=== PATIENT | male | born 1955 | race Caucasian/White ===

== ENCOUNTER 2017-11-03 06:55 | Day surgery (SDC) | payer OTHER ==
[~2017-11-03] VITALS: Ht 190.5 cm; Wt 125.4 kg
[~2017-11-03 06:55] MED LIST: ALLO300 PO; Azor 5-40 MG T1 EACH; ENOX40I SC; IBUP800 PO; LISI20 PO; LISINOPRIL 40MG PO; LOVA40 PO; NAPR220 PO; OXYACE5T PO; PYRI100 PO
== END 2017-11-03 08:56 | disposition home or self-care (01) ==
LOC: ORSCSDS 06:55
PROVIDERS: Surgery
PROC: 0DJD8ZZ Inspection of Lower Intestinal Tract, Via Natural or Artificial Opening Endoscopic (ICD-10-PCS; principal; 2017-11-03 08:00)
DX: Z86.010 Personal history of colon polyps (principal); Z85.038 Personal history of other malignant neoplasm of large intestine; F17.220 Nicotine dependence, chewing tobacco, uncomplicated; E78.5 Hyperlipidemia, unspecified; I10 Essential (primary) hypertension; Z79.899 Other long term (current) drug therapy
CPT/HCPCS: J0330; J1980; J2405; J7120

== ENCOUNTER → 2018-11-08 | Outpatient (CLI) | payer OTHER | END | disposition home or self-care (01) | LOC: LAB SHORT 10:13 → PLD 10:13 | DX: L57.0 Actinic keratosis (principal) | CPT/HCPCS: 88305 ==

== ENCOUNTER → 2018-11-23 | Outpatient (CLI) | payer OTHER | END | disposition home or self-care (01) | LOC: LAB 10:04 → LAB SHORT 10:04 | DX: L03.115 Cellulitis of right lower limb (principal) | CPT/HCPCS: 87070; 87077; 87186; 87205 ==

== ENCOUNTER → 2019-05-26 | Outpatient (CLI) | payer MEDICARE, OTHER | END | disposition home or self-care (01) | LOC: LAB SHORT 14:04 → PLD 14:04 | DX: I87.2 Venous insufficiency (chronic) (peripheral) (principal) | CPT/HCPCS: 88305 ==

== ENCOUNTER → 2020-01-24 | Outpatient (CLI) | payer MEDICARE, OTHER | END | disposition home or self-care (01) | LOC: LAB 12:42 → LAB SHORT 12:42 | DX: L08.0 Pyoderma (principal) | CPT/HCPCS: 87070; 87205 ==

== ENCOUNTER → 2020-01-24 | Outpatient (CLI) | payer MEDICARE, OTHER | END | disposition home or self-care (01) | LOC: PLD 13:06 → LAB SHORT 13:06 | DX: L57.0 Actinic keratosis (principal) | CPT/HCPCS: 88305 ==

== ENCOUNTER → 2020-03-20 | Outpatient (CLI) | payer MEDICARE, OTHER | END | disposition home or self-care (01) | LOC: LAB 12:15 → LAB SHORT 12:15 | DX: L03.115 Cellulitis of right lower limb (principal) | CPT/HCPCS: 87070; 87147; 87205 ==

== ENCOUNTER → 2020-04-18 | Outpatient (CLI) | payer MEDICARE, OTHER | END | disposition home or self-care (01) | LOC: LAB 08:30 → LAB SHORT 08:30 | DX: L03.115 Cellulitis of right lower limb (principal) | CPT/HCPCS: 87070; 87205 ==

== ENCOUNTER 2021-01-23 09:57 | Day surgery (SDC) | payer MEDICARE, OTHER ==
[~2021-01-23] VITALS: Ht 190.5 cm; Wt 131.0 kg
[~2021-01-23 09:57] MED LIST changes: +ALLOPURINOL100 MG PO; +Benicar40 MG PO; +ERGO50000 PO; +Norco 5-325 Ta1 EACH PO; +VITAMIN B COMP1 EAC1 PO
== END 2021-01-23 12:26 | disposition home or self-care (01) ==
LOC: ORSCSDS 09:57
PROVIDERS: Surgery
PROC: 0DBH8ZX Excision of Cecum, Via Natural or Artificial Opening Endoscopic, Diagnostic (ICD-10-PCS; principal; 2021-01-23 11:15)
DX: Z12.11 Encounter for screening for malignant neoplasm of colon (principal); Z85.038 Personal history of other malignant neoplasm of large intestine; D12.0 Benign neoplasm of cecum; E78.5 Hyperlipidemia, unspecified; I10 Essential (primary) hypertension; G47.30 Sleep apnea, unspecified; E66.01 Morbid (severe) obesity due to excess calories; Z68.37 Body mass index [BMI] 37.0-37.9, adult; Z79.899 Other long term (current) drug therapy
CPT/HCPCS: 88305; J2704; J7120

== ENCOUNTER 2022-03-24 16:23 | Emergency (ER) | payer MEDICARE, OTHER ==
[~2022-03-24] VITALS: Ht 190.5 cm; Wt 124.7 kg
[2022-03-24] MEDS ORDERED: CRUTCH3 XX (18:46)
== END 2022-03-24 18:54 | disposition home or self-care (01) ==
LOC: ER 16:23
DX: S83.92XA Sprain of unspecified site of left knee, initial encounter (principal); E78.5 Hyperlipidemia, unspecified; I10 Essential (primary) hypertension; X58.XXXA Exposure to other specified factors, initial encounter; Y93.01 Activity, walking, marching and hiking; Y92.9 Unspecified place or not applicable; Z79.899 Other long term (current) drug therapy; Z96.651 Presence of right artificial knee joint
CPT/HCPCS: 73562-LT; J1885

== ENCOUNTER 2024-09-26 00:18 | Day surgery (SDC) | payer MEDICARE, OTHER ==
[~2024-09-26 00:18] MED LIST changes: +CRUTCH3 XX; +VITAMIN B6 PO
== END 2024-09-26 23:00 | disposition home or self-care (01) ==
LOC: WOUND 00:18
DX: I83.018 Varicose veins of right lower extremity with ulcer other part of lower leg (principal); L97.312 Non-pressure chronic ulcer of right ankle with fat layer exposed; I87.2 Venous insufficiency (chronic) (peripheral); I73.9 Peripheral vascular disease, unspecified
CPT/HCPCS: A6196; A6213; G0463

== ENCOUNTER 2024-10-03 04:51 | Day surgery (SDC) | payer MEDICARE, OTHER ==
[2024-10-03] MEDS ORDERED: Lidocaine HCl 4% Cream 5 GM ONE (08:50)
== END 2024-10-03 23:49 | disposition home or self-care (01) ==
LOC: WOUND 04:51
DX: L97.312 Non-pressure chronic ulcer of right ankle with fat layer exposed (principal); I87.2 Venous insufficiency (chronic) (peripheral); I73.9 Peripheral vascular disease, unspecified; I10 Essential (primary) hypertension
CPT/HCPCS: A6196; A6213; A9270; G0463

== ENCOUNTER 2024-10-10 03:01 | Day surgery (SDC) | payer MEDICARE, OTHER | END 2024-10-10 23:00 | disposition home or self-care (01) | LOC: WOUND 03:01 | DX: I83.018 Varicose veins of right lower extremity with ulcer other part of lower leg (principal); L97.312 Non-pressure chronic ulcer of right ankle with fat layer exposed; L97.319 Non-pressure chronic ulcer of right ankle with unspecified severity; I87.2 Venous insufficiency (chronic) (peripheral); I73.9 Peripheral vascular disease, unspecified | CPT/HCPCS: A6196; A6213; G0463 ==

== ENCOUNTER 2024-10-24 03:04 | Day surgery (SDC) | payer MEDICARE, OTHER | END 2024-10-24 23:00 | disposition home or self-care (01) | LOC: WOUND 03:04 | DX: I83.018 Varicose veins of right lower extremity with ulcer other part of lower leg (principal); L97.312 Non-pressure chronic ulcer of right ankle with fat layer exposed; I87.2 Venous insufficiency (chronic) (peripheral); I73.9 Peripheral vascular disease, unspecified; I10 Essential (primary) hypertension | CPT/HCPCS: A6196; A6213; G0463 ==

== ENCOUNTER 2024-10-31 03:10 | Day surgery (SDC) | payer MEDICARE, OTHER | END 2024-10-31 23:00 | disposition home or self-care (01) | LOC: WOUND 03:10 | DX: L97.312 Non-pressure chronic ulcer of right ankle with fat layer exposed (principal); I87.2 Venous insufficiency (chronic) (peripheral); I73.9 Peripheral vascular disease, unspecified; I10 Essential (primary) hypertension | CPT/HCPCS: 87070; 87075; 87077; 87147; 87186; 87205; A6196; A6213; G0463 ==

== ENCOUNTER 2024-11-07 04:22 | Day surgery (SDC) | payer MEDICARE, OTHER ==
[2024-11-07] MEDS ORDERED: Lidocaine HCl 4% Cream 5 GM ONE (08:42)
== END 2024-11-07 23:00 | disposition home or self-care (01) ==
LOC: WOUND 04:22
DX: L97.312 Non-pressure chronic ulcer of right ankle with fat layer exposed (principal); I10 Essential (primary) hypertension; I83.018 Varicose veins of right lower extremity with ulcer other part of lower leg; I73.9 Peripheral vascular disease, unspecified; I87.2 Venous insufficiency (chronic) (peripheral)
CPT/HCPCS: A6196; A9270

== ENCOUNTER 2024-11-14 04:06 | Day surgery (SDC) | payer MEDICARE, OTHER ==
[2024-11-14] MEDS ORDERED: Lidocaine HCl 4% Cream 5 GM ONE (10:38)
== END 2024-11-14 23:00 | disposition home or self-care (01) ==
LOC: WOUND 04:06
DX: L97.312 Non-pressure chronic ulcer of right ankle with fat layer exposed (principal); I83.018 Varicose veins of right lower extremity with ulcer other part of lower leg; I87.2 Venous insufficiency (chronic) (peripheral); I73.9 Peripheral vascular disease, unspecified
CPT/HCPCS: A9270

== ENCOUNTER 2024-11-21 06:18 | Day surgery (SDC) | payer MEDICARE, OTHER ==
[2024-11-21] MEDS ORDERED: Lidocaine HCl 4% Cream 5 GM ONE (10:26)
== END 2024-11-21 23:00 | disposition home or self-care (01) ==
LOC: WOUND 06:18
DX: L97.312 Non-pressure chronic ulcer of right ankle with fat layer exposed (principal); I87.2 Venous insufficiency (chronic) (peripheral); I73.9 Peripheral vascular disease, unspecified; I10 Essential (primary) hypertension
CPT/HCPCS: A9270

== ENCOUNTER 2024-11-28 06:21 | Day surgery (SDC) | payer MEDICARE, OTHER ==
[2024-11-28] MEDS ORDERED: Lidocaine HCl 4% Cream 5 GM ONE (10:06)
== END 2024-11-28 23:00 | disposition home or self-care (01) ==
LOC: WOUND 06:21
DX: L97.312 Non-pressure chronic ulcer of right ankle with fat layer exposed (principal); I83.018 Varicose veins of right lower extremity with ulcer other part of lower leg; I87.2 Venous insufficiency (chronic) (peripheral); I73.9 Peripheral vascular disease, unspecified
CPT/HCPCS: A6196; A9270

== ENCOUNTER 2024-12-05 01:19 | Day surgery (SDC) | payer MEDICARE, OTHER ==
[2024-12-05] MEDS ORDERED: Lidocaine HCl 4% Cream 5 GM ONE (10:36)
== END 2024-12-05 23:00 | disposition home or self-care (01) ==
LOC: WOUND 01:19
DX: L97.312 Non-pressure chronic ulcer of right ankle with fat layer exposed (principal); I83.018 Varicose veins of right lower extremity with ulcer other part of lower leg; I87.2 Venous insufficiency (chronic) (peripheral); I73.9 Peripheral vascular disease, unspecified
CPT/HCPCS: A6196; A9270

== ENCOUNTER 2024-12-19 00:12 | Day surgery (SDC) | payer MEDICARE, OTHER ==
[2024-12-19] MEDS ORDERED: Lidocaine HCl 4% Cream 5 GM ONE (07:53)
[2024-12-19] MEDS ORDERED: Triamcinolone Acet 0.1% Cream 15 gm ONE (08:16)
== END 2024-12-19 23:00 | disposition home or self-care (01) ==
LOC: WOUND 00:12
DX: L97.312 Non-pressure chronic ulcer of right ankle with fat layer exposed (principal); I10 Essential (primary) hypertension; I87.2 Venous insufficiency (chronic) (peripheral); I73.9 Peripheral vascular disease, unspecified; I83.018 Varicose veins of right lower extremity with ulcer other part of lower leg
CPT/HCPCS: A9270

== ENCOUNTER 2024-12-23 03:03 | Day surgery (SDC) | payer MEDICARE, OTHER ==
[2024-12-23] MEDS ORDERED: Triamcinolone Acet 0.1% Cream 15 gm ONE (12:28)
== END 2024-12-23 23:00 | disposition home or self-care (01) ==
LOC: WOUND 03:03
DX: I83.018 Varicose veins of right lower extremity with ulcer other part of lower leg (principal); L97.312 Non-pressure chronic ulcer of right ankle with fat layer exposed; I87.2 Venous insufficiency (chronic) (peripheral); I73.9 Peripheral vascular disease, unspecified
CPT/HCPCS: A6196; A9270

== ENCOUNTER 2025-01-02 02:24 | Day surgery (SDC) | payer MEDICARE, OTHER ==
[2025-01-02] MEDS ORDERED: Triamcinolone Acet 0.1% Cream 15 gm ONE (10:02)
== END 2025-01-02 23:00 | disposition home or self-care (01) ==
LOC: WOUND 02:24
DX: L97.312 Non-pressure chronic ulcer of right ankle with fat layer exposed (principal); I87.2 Venous insufficiency (chronic) (peripheral); I73.9 Peripheral vascular disease, unspecified; I10 Essential (primary) hypertension
CPT/HCPCS: A9270

== ENCOUNTER 2025-01-09 01:58 | Day surgery (SDC) | payer MEDICARE, OTHER | END 2025-01-09 23:18 | disposition home or self-care (01) | LOC: WOUND 01:58 | DX: L97.312 Non-pressure chronic ulcer of right ankle with fat layer exposed (principal); I83.018 Varicose veins of right lower extremity with ulcer other part of lower leg; I87.2 Venous insufficiency (chronic) (peripheral); I73.9 Peripheral vascular disease, unspecified; I10 Essential (primary) hypertension ==

== ENCOUNTER 2025-01-17 02:54 | Day surgery (SDC) | payer MEDICARE, OTHER ==
[2025-01-17] MEDS ORDERED: Triamcinolone Acet 0.1% Cream 15 gm ONE (14:19)
== END 2025-01-17 22:54 | disposition home or self-care (01) ==
LOC: WOUND 02:54
DX: I83.018 Varicose veins of right lower extremity with ulcer other part of lower leg (principal); L97.312 Non-pressure chronic ulcer of right ankle with fat layer exposed; I87.2 Venous insufficiency (chronic) (peripheral); I73.9 Peripheral vascular disease, unspecified; I10 Essential (primary) hypertension
CPT/HCPCS: A9270

== ENCOUNTER 2025-01-23 01:25 | Day surgery (SDC) | payer MEDICARE, OTHER | END 2025-01-23 23:00 | disposition home or self-care (01) | LOC: WOUND 01:25 | DX: L97.312 Non-pressure chronic ulcer of right ankle with fat layer exposed (principal); I87.2 Venous insufficiency (chronic) (peripheral); I73.9 Peripheral vascular disease, unspecified; I10 Essential (primary) hypertension ==

== ENCOUNTER 2025-01-26 12:21 | Day surgery (SDC) | payer MEDICARE, OTHER ==
[~2025-01-26] VITALS: Ht 190.5 cm; Wt 130.4 kg
[~2025-01-26 12:21] MED LIST changes: +Lactated Ringer's 1,000 ML IV ONE
[2025-01-26] MEDS ORDERED: NAPR500EC (12:44)
[2025-01-26] MEDS ORDERED: Lactated Ringer's 1,000 ML IV ONE (13:08)
[2025-01-26] MEDS ORDERED: propofoL 50 ML IV ONE ×2 (13:48→14:11)
[2025-01-26 14:52] VITALS: BP 110/79
== END 2025-01-26 15:03 | disposition home or self-care (01) ==
LOC: ORSCSDS 12:21
PROVIDERS: Surgery
PROC: 0DJD8ZZ Inspection of Lower Intestinal Tract, Via Natural or Artificial Opening Endoscopic (ICD-10-PCS; principal; 2025-01-26 13:45)
DX: Z12.11 Encounter for screening for malignant neoplasm of colon (principal); Z85.038 Personal history of other malignant neoplasm of large intestine; Z86.0101 Personal history of adenomatous and serrated colon polyps; G47.33 Obstructive sleep apnea (adult) (pediatric); I10 Essential (primary) hypertension; M10.9 Gout, unspecified; Z72.0 Tobacco use; K21.9 Gastro-esophageal reflux disease without esophagitis; Z79.899 Other long term (current) drug therapy
CPT/HCPCS: J2704; J7120

== ENCOUNTER 2025-01-30 01:06 | Day surgery (SDC) | payer MEDICARE, OTHER ==
[~2025-01-30 01:06] MED LIST changes: -Lactated Ringer's 1,000 ML IV ONE; +NAPR500EC
== END 2025-01-30 23:00 | disposition home or self-care (01) ==
LOC: WOUND 01:06
DX: I83.018 Varicose veins of right lower extremity with ulcer other part of lower leg (principal); L97.312 Non-pressure chronic ulcer of right ankle with fat layer exposed; I87.2 Venous insufficiency (chronic) (peripheral); I73.9 Peripheral vascular disease, unspecified

== ENCOUNTER 2025-02-07 08:00 | Day surgery (SDC) | payer MEDICARE, OTHER | END 2025-02-07 23:00 | disposition home or self-care (01) | LOC: WOUND 08:00 | DX: L97.312 Non-pressure chronic ulcer of right ankle with fat layer exposed (principal); I83.018 Varicose veins of right lower extremity with ulcer other part of lower leg; I87.2 Venous insufficiency (chronic) (peripheral); I73.9 Peripheral vascular disease, unspecified | CPT/HCPCS: G0463 ==

== ENCOUNTER 2025-02-13 12:24 | Day surgery (SDC) | payer MEDICARE, OTHER | END 2025-02-13 23:00 | disposition home or self-care (01) | LOC: WOUND 12:24 | DX: L97.312 Non-pressure chronic ulcer of right ankle with fat layer exposed (principal); I83.018 Varicose veins of right lower extremity with ulcer other part of lower leg; I87.2 Venous insufficiency (chronic) (peripheral); I73.9 Peripheral vascular disease, unspecified | CPT/HCPCS: G0463 ==

== ENCOUNTER 2025-06-21 04:10 | Day surgery (SDC) | payer MEDICARE, OTHER | END 2025-06-21 23:00 | disposition home or self-care (01) | LOC: WOUND 04:10 | DX: I83.018 Varicose veins of right lower extremity with ulcer other part of lower leg (principal); L97.812 Non-pressure chronic ulcer of other part of right lower leg with fat layer exposed; I87.2 Venous insufficiency (chronic) (peripheral); I10 Essential (primary) hypertension; G47.30 Sleep apnea, unspecified | CPT/HCPCS: A6196; G0463 ==

== ENCOUNTER 2025-06-30 01:47 | Day surgery (SDC) | payer MEDICARE, OTHER | END 2025-06-30 23:00 | disposition home or self-care (01) | LOC: WOUND 01:47 | DX: I83.018 Varicose veins of right lower extremity with ulcer other part of lower leg (principal); L97.812 Non-pressure chronic ulcer of other part of right lower leg with fat layer exposed; I87.2 Venous insufficiency (chronic) (peripheral); I10 Essential (primary) hypertension | CPT/HCPCS: G0463 ==

== ENCOUNTER 2025-07-21 00:23 | Day surgery (SDC) | payer MEDICARE, OTHER | END 2025-07-21 23:00 | disposition home or self-care (01) | LOC: WOUND 00:23 | DX: L97.811 Non-pressure chronic ulcer of other part of right lower leg limited to breakdown of skin (principal); I87.2 Venous insufficiency (chronic) (peripheral); I10 Essential (primary) hypertension; Z87.828 Personal history of other (healed) physical injury and trauma | CPT/HCPCS: G0463 ==